=== PATIENT | male | born 2005 | race Caucasian/White ===

== ENCOUNTER 2025-03-18 13:27 | Emergency (ER) | payer BC, SELFPAY ==
--- NOTE | 2025-03-18 13:41 | ED_ITS ---
HPI - Skin/Abscess/Foreign Bdy General Chief complaint: Skin/Abscess/Foreign Body Stated complaint: Rash Time Seen by Provider: 03/18/25 13:46 Source: patient and RN notes reviewed Mode of arrival: ambulatory Limitations: no limitations History of Present Illness HPI narrative: 19-year-old male presents with concern for itchy rash. Reports the rash started on Tuesday after he was weed eating. Reports the rash has spread to his torso, arms, back. He denies any swollen lips, swollen tongue, trouble breathing. He has use calamine lotion. complaint: rash Related Data Allergies Allergy/AdvReac Type Severity Reaction Status Date / Time Penicillins Allergy Mild Other Verified 03/18/25 13:44 Review of Systems Review of Systems: CONSTITUTIONAL: Denies malaise, chills, sweats, or fever. EYES: Denies redness, or discharge. ENT: Denies rhinorrhea, congestion, swollen lips, swollen tongue CARDIOVASCULAR: Denies chest pain, palpitations, or edema. RESPIRATORY: Denies cough or dyspnea. GASTROINTESTINAL: Denies abdominal pain, nausea, vomiting SKIN: Reports itchy rash on bilateral extremities upper lower, back, abdomen, chest MUSCULOSKELETAL: Denies joint pain or myalgia. NEUROLOGIC: Denies headache. All systems reviewed & are unremarkable except as noted in HPI and below PMFSH Comments At time of signature, agree with nursing past medical, surgical, social and family history. There is no relevant family history pertinent to the presenting complaint Exam Narrative: GENERAL: Well-appearing, well-nourished, and in no acute distress. HEAD: Normocephalic, atraumatic. EYES: PERRLA, conjunctivae clear, and EOMI. ENT: Mucous membranes moist. Oropharynx without edema, erythema or lesions. NECK: Supple. No lymphadenopathy CHEST: Clear to auscultation. No respiratory distress. HEART: Regular rate and rhythm. SKIN: Warm, dry. Erythematous papular rash noted to extremities, patches of raised erythema noted to the back NEURO: Alert and oriented x3. PSYCH: Normal mood and affect Course Course Emergency Course: Patient is aware of diagnosis, understands and agrees to treatment plan. Anticipatory guidance given. Patient agrees to follow-up as directed and is aware of reasons to seek care at the emergency department. Portions of this record may have been created with voice recognition software Level of Care: Express Care Visit Vital Signs Vital signs: Reviewed. MDM - Skin/Abscess/Foreign Bdy MDM Narrative Medical decision making narrative: Does not appear at this time to be erythema multiforme, bullous, SJS, TEN; no evidence at this time to suggest RMSF, endocarditis or Lyme disease; patient looks well, nontoxic and is tolerating oral intake; no neurologic signs or symptoms; no headache, photophobia or neck pain; afebrile; appropriate for initial outpatient treatment; discussed the importance of follow-up, patient agrees; question, viral exanthema, contact dermatitis, allergic dermatitis, eczema, urticaria. No soft palate or uvula edema, no tongue, lip edema or other mucosal involvement, no respiratory compromise, no stridor, no wheezing, no wheezing, no history of syncope, no hypotension, no nausea, vomiting, or diar vladimir. Instructed patient to go to nearest ER immediately for any worsening symptoms including but not limited to: fever, spreading rash, pain, sore throat, headache, dizziness, chest pain, trouble breathing, or any symptoms concerning to the patient. Critical Care Time Critical Care Time Critical Care Time: No Discharge Plan Discharge Clinical Impression: Contact dermatitis Patient Disposition: Home Condition: Stable Instructions: Poison Marva (ED) Additional Instructions: Prevention is always better than treatment. Learn to identify poison marva, oak, and sumac and avoid it. Wear long sleeves, long pants, shoes, and socks. If you touched the plant, try to keep your hands away from your eyes, mouth, and face. Wash the skin thoroughly with soap and cool water as soon as possible. Scrub under the fingernails with a brush to prevent spreading of the resin to other parts of the body by touching or scratching. Remember to wash any clothing with soap and hot water as the resin can persist for many months and cause further dermatitis. You should NOT use antihistamine creams or lotions, anesthetic creams containing benzocaine, or antibiotic creams containing neomycin or bacitracin to the skin. These creams or ointments could make the rash worse. Antihistamines do not help to relieve itching caused by poison marva dermatitis. For some people, adding oatmeal to a bath, applying cool wet compresses, and applying calamine lotion may help to relieve itching. Once the blisters begin weeping fluid, astringents containing aluminum acetate (Burow's solution) and Domeboro may help to relieve the rash. IF symptoms get worse to follow up with your primary care provider or seek ER visit if you developing difficulty breathing, weakness, dizziness. Patient Language: Portuguese Prescriptions: New prednisone 10 mg tablet 10 mg PO DAILY Qty: 42 0RF Rx Instructions: 6 tabs days 1-2, 5 tabs days 3-4, 4 tabs days 5-6, 3 tabs days 7-8, 2 tabs days 9-10, 1 tab days 11-12 Follow-up/Referrals: PHYSICIAN,SOCIAL WORK LECTURER [Primary Care Provider] - Time of Disposition: 13:54
--- OUTSIDE RECORDS SUMMARY | 2025-03-18 13:43 | XMS_ITS | Clinical Summary ---
Author Organization [facility] Address [address] [place] [address] Care Team Providers Care Glass Blowing Instructor Name Role Phone Faby Vazquez MD Primary Care Provider Source Comments [facility],non-owned Affiliates and Associated Physician Practices is amultiple site organization consisting of ambulatory clinics and hospital sitesin [place], [place], [place] and [place]. This disclosure is being madepursuant to the Care Everywhere program and may not contain all information available regarding this patient. Last updated 18.[facility] Allergies Active Allergy Reactions Criticality Noted Date Comments Penicillins Rash Low 06/04/2015 Medications * Be aware that medications may not be up to date on this document. Always verify current medications with the patient. ibuprofen (ADVIL; MOTRIN) 100 MG/5ML suspension Take 200 mg by mouth every 6 hours as needed for Pain or Fever Active Active Problems Problem Noted Date Diagnosed Date Trouble breathing 06/04/2015 Assessment & Plan (06/04/2015 2:02 PM CDT): I am encouraged by his normal exam, oxygen saturation -100%- and normal pulmonary function studies. I think that it is unlikely that he has any underlying lung disease. We discussed behavioral causes - noted that I was seeing no other features suggesting Tourette's syndrome. I was unable to determine from his description a clear enough description to attribute convincingly to vocal cord dysfunction. However, I did review using resistive breathing at next occurrence to see if this helps. I have occasionally seen subclinical CAROLIN play a role - could consider empiric treatment with acid suppression as a diagnostic maneuver. I reassured on overall lung health. Family History Medical History Relation Name Comments Allergies Mother Asthma Neg Hx Relation Name Status Comments Mother Social History Tobacco Use Types Packs/Day Years Used Date Smoking Tobacco: Passive Smo ke Exposure - Never Smoker Comments:mom and gma 1/2ppd Sex and Gender Information Value Date Recorded Sex Assigned at Not on file Legal Sex Male 9:49 AM CDT Gender Identity Not on file Sexual Orientation Not on file Last Filed Vital Signs Vital Sign Reading Time Taken Comments Blood Pressure - - Pulse 82 06/04/2015 1:06 PM CDT Temperature - - Respiratory Rate 16 06/04/2015 1:06 PM CDT Oxygen Saturation 100% 06/04/2015 1:06 PM CDT Inhaled Oxygen Concentration - - Weight 51.4 kg (113 lb 5.1 oz) 06/04/2015 1:06 P M CDT Height 150.4 cm (4' 11.21) 06/04/2015 1:06 PM C DT Body Mass Index 22.72 06/04/2015 1:06 PM CDT Plan of Treatment Health Maintenance Due Date Last Done Comments HIV SCREENING 12/31/2019 HPV VACCINE (1 - Male 3-dose series) 12/31/2019 MENINGOCOCCAL (Group B) VACC INE SHARED DECISION-MAKING (1 of 2 - Standard) 2020 HEPATITIS C SCREENING 12/26/2022 DTAP/TDAP/TD VACCINES (1 - Tdap) 12/31/2023 HEPATITIS B VACCINE (1 of 3 - 19+ 3-dose series) 12/31/2023 COVID-19 VACCINE (1 - 2023-2 5 season) 2024 DEPRESSION SCREENING 08/22/2024 INFLUENZA VACCINE (#1) 2025 ZOSTER VACCINE (1 of 2) 2054 HIB VACCINE Aged Out No longer eligi ble based on patient's age to complete this topic MENINGOCOCCAL GROUPS A/C/Y/W VACCINE Aged Out No longer eligible b ased on patient's age to complete this topic PNEUMOCOCCAL VACCINE Aged Out No long er eligible based on patient's age to complete this topic Insurance [facility] Care Teams Glass Blowing Instructor Relationship Specialty Start Date End Date Faby Vazquez MD [address] [place] [id number] PCP - General Pediatrics 05/12/15
--- OUTSIDE RECORDS SUMMARY | 2025-03-18 13:43 | XMS_ITS | Encounter Summary ---
Author Organization [facility] Address [address] [place] [id number] Care Team Providers Care Electron Beam Welder Setter Name Role Phone Faby Fierro MD Primary Care Provider Encounter Details Date Type Department Care Team (Latest Contact Info) Description 06/27/2018 Abstract [facility] , Jamia Hathaway MD Social History Tobacco Use Types Packs/Day Years Used Date Smoking Tobacco: Never Assessed Sex and Gender Information Value Date Recorded Sex Assigned at Not on file Legal Sex Male 7:42 PM CDT Gender Identity Not on file Sexual Orientation Not on file documented as of this encounter Plan of Treatment Not on file documented as of this encounter Visit Diagnoses Not on filedocumented in this encounter Care Teams Electron Beam Welder Setter Relationship Specialty Start Date End Date Faby Fierro MD [address] [place] [address] PCP - General PEDIATRICS 06/10/19 documented as of this encounter
--- OUTSIDE RECORDS SUMMARY | 2025-03-18 13:43 | XMS_ITS | Clinical Summary ---
Author Organization [facility] Address [address] [place] [address] Care Team Providers Care Rn Physician Office Name Role Phone Faby Fierro MD Primary Care Provider Allergies Active Allergy Reactions Criticality Noted Date Comments Amoxicillin Rash Low 08/13/2012 Penicillins Rash,Unknown Low 08/13/2012 Medications ibuprofen 100 MG/5ML suspension Take 200 mg by mouth every 6 (six) hours as needed. Active Active Problems Problem Noted Date Diagnosed Date Difficulty breathing 06/04/2015 Overview (12/02/2020): Last Assessment & Plan: I am encouraged by his normal exam, [...] maneuver. I reassured on overall lung health. Resolved Problems Problem Noted Date Diagnosed Date Resolved Date Routine or child health check 08/13/2012 12/08/2020 Immunizations Immunization Administration Dates Next Due Dtap 12/10/2009, 7,07/07/2005,05/11/2005,2004 HPV GARDASIL 9-VALENT 07/23/2016,03/16/2016,12/21 Hepatitis A (Generic) 01/25/2007,06/15/2006 Hepatitis B Pediatric 10/20/2005,02/18/2005,12/20 Hib 06/15/2006,07/07/2005,05/11/2005 ,03/01/2005 Influenza (Generic) 08/06/2005,07/07/2005 Influenza Adult (Generic) 07/23/2016,08/14/2008, 06/15/2006 MMR 12/10/2009,01/13/2006 Menactra 01/14/2016 Meningococcal (Menactra) 03/12/2021,01/14/2016 Pneumococcal (Prevnar 7) 01/13/2006,07/07/2005,0 05/11/2005,03/01/2005 Polio IPV (Ipol) 12/10/2009,01/13/2006,,03/01/2005 Tdap (Generic) 01/14/2016 Varicella Vaccine 12/10/2009,06/15/2006 Family History Medical History Relation Comments Cancer Father Thyroid Diabetes Maternal Grandmother Hypertension Maternal Grandmother Stroke Maternal Grandmother Migraines Mother Relation Status Comments Father Alive Maternal Grandmother Alive Mother Alive Social History Tobacco Use Types Packs/Day Years Used Date Smoking Tobacco: Never Smokeless Tobacco: Never Tobacco Cessation:Counseling Given: No Alcohol Use Standard Drinks/Week Comments No 0 (1 standard drink = 0.6 oz pur e alcohol) AUDIT-C Answer Date Recorded Frequency of Alcohol Consumption Never 06/10/2019 Average Number of Drinks Not on file 019 Frequency of Binge Drinking Not on file 05/23 Sex and Gender Information Value Date Recorded Sex Assigned at Not on file Legal Sex Male 7:42 PM CDT Gender Identity Not on file Sexual Orientation Not on file Last Filed Vital Signs Vital Sign Reading Time Taken Comments Blood Pressure 124/68 07/21/2021 1:16 PM RAILROAD CAR REPAIR SUPERVISOR Pulse 81 07/21/2021 1:16 PM RAILROAD CAR REPAIR SUPERVISOR Temperature 36.7 C (98.1 F) 07/21/2021 1:16 PM RAILROAD CAR REPAIR SUPERVISOR Respiratory Rate 16 07/21/2021 1:16 PM RAILROAD CAR REPAIR SUPERVISOR Oxygen Saturation 100% 07/21/2021 1:16 PM RAILROAD CAR REPAIR SUPERVISOR Inhaled Oxygen Concentration - - Weight 80.1 kg (176 lb 9.6 oz) 07/21/2021 1:16 P M RAILROAD CAR REPAIR SUPERVISOR Height 175.3 cm (5' 9) 07/21/2021 1:16 PM RAILROAD CAR REPAIR SUPERVISOR Body Mass Index 26.08 07/21/2021 1:16 PM RAILROAD CAR REPAIR SUPERVISOR Plan of Treatment Health Maintenance Due Date Last Done Comments Annual Physical 12/31/2007 Meningococcal B Vaccine (1 of 2 - Standard) 2020 Hepatitis C 2022 COVID-19 Vaccine ( season) 2024 DTaP, Tdap and Td Vaccines (7 - Td or Tdap) 01/13/2026 01/14/2016, 12/10/2009, 01/25/2007, Additional history exists Hepatitis B Vaccines Completed 10/20/2005, 02/18/2005, 2004 Pneumococcal Vaccine: Pediatrics (0 to 5 Years) and At-Risk Patients (6 to 49 Years) Aged Out 01/13/2006, 07/07/2005, 05/11/2005, Additional history exists No longer eligible based on patient's age to complete this topic HPV Vaccines Completed 07/23/2016, 02/20, 01/14/2016 Meningococcal Vaccine Completed 03/12/2021 , 01/14/2016, 01/14/2016 RSV Immunizations Under 20 Months Aged Out No longer eligible based on patient's age to complete this topic Insurance [facility] Care Teams Rn Physician Office Relationship Specialty Start Date End Date Faby Fierro MD [address] [facility] [facility] [place] [address] PCP - General PEDIATRICS 06/10/19
[2025-03-18 13:44] VITALS: BP 148/70; PULSE 77; RESP 18; TEMP 36.7; O2SAT 100
== END 2025-03-18 13:59 | disposition home or self-care (01) ==
PROVIDERS: Emergency Provider Nurse Practitioner
DX: L25.9 Unspecified contact dermatitis, unspecified cause (principal)
CPT/HCPCS: 99203; G0463